=== PATIENT | male | born 1965 | race Caucasian/White ===

== ENCOUNTER 2018-07-08 12:06 | Emergency (ER) | payer OTHER ==
[2018-07-08] MEDS ORDERED: Norflex 60 MG/2 ML IM ONE (13:34)
[2018-07-08] MEDS ORDERED: TORAdol 30 mg Injection IM ONE (13:34)
[2018-07-08] MEDS ORDERED: Norflex 60 MG/2 ML ONE (13:41)
[2018-07-08] MEDS ORDERED: TORAdol 30 mg Injection ONE (13:41)
--- NOTE | 2018-07-08 13:46 | ERPHSYRPT ---
- History of Present Illness Time Seen by Provider: 07/08/18 13:20 Source: patient Exam Limitations: no limitations Patient Subjective Stated Complaint: Pt states "I have rods and stuff in my back and I have allot of back pain all the time, but this is different. The pain is in my lower back and goes down into my butt on both sides." Triage Nursing Assessment: PT alert and oriented X 3, skin pwd Pt ambulates with an upright slow steady gait, able to speak in clear full sentences. PT in no apparent respiratory distress. Physician History: C/o low back pain, radiates to his legs x 2 days, denies recent injury. He has been treated with chronic low back pain for years, he underwent surgeries, last one 3 years ago. He denies fever, chills, nausea, vomiting, abdominal pain, fever, chills other complaints, he is past alcoholic, denies current abuse, no iv drug use recent or past. Timing/Duration: day(s) (2) Method of Injury: other (denies) Quality: radiating, sharp Back Pain Location: lumbar spine, paraspinous muscles Back Pain Radiation: buttocks, upper legs Severity of Pain-Max: severe Severity of Pain-Current: severe Modifying Factors: Improves With: movement Associated Symptoms: denies symptoms Previous symptoms: same symptoms as today Allergies/Adverse Reactions: acetaminophen Adverse Reaction (Severe, Verified 07/08/18 12:40) liver disease Hx Tetanus, Diphtheria Vaccination/Date Given: Yes Hx Influenza Vaccination/Date Given: Yes Hx Pneumococcal Vaccination/Date Given: No Immunizations Up to Date: Yes - Review of Systems Constitutional: No Symptoms Eyes: No Symptoms Ears, Nose, & Throat: No Symptoms Respiratory: No Symptoms Cardiac: No Symptoms Abdominal/Gastrointestinal: No Symptoms Genitourinary Symptoms: No Symptoms Musculoskeletal: Back Pain Skin: No Symptoms Neurological: No Symptoms, No Paralysis, No Parasthesia All Other Systems: Reviewed and Negative - Past Medical History Pertinent Past Medical History: Yes Neurological History: No Pertinent History ENT History: No Pertinent History Cardiac History: Hypertension Respiratory History: No Pertinent History Endocrine Medical History: Liver Disease Musculoskeletal History: Degenerative Disk Disease GI Medical History: No Pertinent History History: No Pertinent History Psycho-Social History: Anxiety, Depression Male Reproductive Disorders: No Pertinent History - Past Surgical History Past Surgical History: Yes Other Surgical History: spinal fusion. right shoulder. nose. appi. julia - Social History Smoking Status: Never smoker Exposure to second hand smoke: Yes Drug Use: none Patient Lives Alone: No - Nursing Vital Signs Nursing Vital Signs: Initial Vital Signs Temperature 98.6 F 07/08/18 12:32 Pulse Rate 66 07/08/18 12:32 Respiratory Rate 18 07/08/18 12:32 Blood Pressure 140/80 07/08/18 12:32 O2 Sat by Pulse Oximetry 98 07/08/18 12:32 Pain Scale Pain Intensity [Lower Back] 6 Pain Intensity 4 - Physical Exam General Appearance: no apparent distress Eye Exam: eyes nml inspection Ears, Nose, Throat Exam: normal ENT inspection Neck Exam: normal inspection, non-tender Respiratory Exam: normal breath sounds, lungs clear Cardiovascular Exam: regular rate/rhythm, normal heart sounds, normal peripheral pulses Gastrointestinal Exam: soft, normal bowel sounds, No tenderness, No distention, No mass, No guarding, No rebound Back Exam: normal inspection, decreased range of motion, No CVA tenderness, No vertebral tenderness, No rash, No muscle spasm, No point tenderness Extremity Exam: normal inspection Peripheral Pulses: dorsalis-pedis (R): 3+, dorsalis-pedis (L): 3+ Neurologic Exam: alert, oriented x 3, cooperative, normal mood/affect, other ( normal reflexes), No motor deficits, No motor weakness Skin Exam: normal color, warm, dry, No rash Lymphatic Exam: No adenopathy SpO2 Interpretation: normal SpO2: 96 O2 Delivery: Room Air - Course Nursing assessment & vital signs reviewed: Yes - CT Exams Lumbar Spine CT Interpretation: Tele-radiologist Report, Other (chronic changes, DJD, no large disc herniation or spinal stenosis) Ordered Tests: Active Orders 24 hr Category Date Time Status LUMBAR SPINE W/O [CT] Stat Exams 07/08/18 13:33 Completed Urinalysis with Microscopy Stat Lab 07/08/18 Uncollected Medication Summary Discontinued Medications Generic Name Dose Route Start Last Admin Trade Name Freq PRN Reason Stop Dose Admin Ketorolac Tromethamine 60 mg 07/08/18 13:34 07/08/18 13:51 Toradol 30 Mg Injection IM 07/08/18 13:35 60 mg STAT ONE Administration Ketorolac Tromethamine Confirm 07/08/18 13:41 Toradol 30 Mg Injection Administered 07/08/18 13:42 Dose 60 mg .ROUTE .STK-MED ONE Orphenadrine Citrate 60 mg 07/08/18 13:34 07/08/18 13:50 Norflex 60 Mg/2 Ml IM 07/08/18 13:35 60 mg STAT ONE Administration Orphenadrine Citrate Confirm 07/08/18 13:41 Norflex 60 Mg/2 Ml Administered 07/08/18 13:42 Dose 60 mg .ROUTE .STK-MED ONE - Progress Progress: improved Progress Note: 07/08/18 15:01 Pt states, he improved after Toradol and Norflex, able to urinate, afebrile, and stable. We discussed his findings, and will discharge to rest x 2-3 days, and follow up with his physician in 1 week. Counseled pt/family regarding: diagnosis, need for follow-up, rad results - Departure Time of Disposition: 15:03 Departure Disposition: Home Clinical Impression: Back pain Qualifiers: Back pain location: low back pain Chronicity: unspecified Back pain laterality : bilateral Sciatica presence: with sciatica Sciatica laterality: sciatica laterality unspecified Qualified Code(s): M54.40 - Lumbago with sciatica, unspecified side Condition: Stable Critical Care Time: No Referrals: GUILHERME AMARAL PA [Primary Care Provider] - Instructions: Low Back Pain (DC), Sciatica (DC) Additional Instructions: Rest x 2-3 days, apply moist heat to back, and follow up with your physician in 1 week, return if severe pain, sudden leg weakness, numbness, loss of bladder or bowel control! Prescriptions: Cyclobenzaprine HCl 10 mg [Cyclobenzaprine 10 MG] 10 mg PO TID #30 tablet Methylprednisolone Packet [Medrol Dosepack] 4 mg PO UD #1 packet Tramadol HCl 50 mg [Ultram 50 mg] 50 mg PO Q6H PRN #10 tablet PRN Reason: Pain
--- NOTE | 2018-07-08 14:07 | XRAY ---
Indication: Severe low back pain for a few months. Multiple contiguous axial images obtained through the lumbar spine. Sagittal and coronal reformatted images obtained. Comparison: None Intact bilateral L4-S1 pedicle screws and intervertebral spacers produces beam artifact limiting these levels. Same levels demonstrates laminectomy. Axial images through the T12-L3 levels negative for large disc herniation or spinal canal stenosis. Facets are symmetric. At the L3-L4 level, there is minimal annular disc bulge minimally effacing the thecal sac and producing bilateral foraminal narrowing. Also minimal degenerative vacuum disc phenomena. No obvious large disc herniation or canal stenosis. At the L4-L5-S1 levels, minimal broad-based disc osteophyte complex effaces the thecal sac and produces bilateral foraminal narrowing. No obvious large disc herniation or canal stenosis. Sagittal and coronal reformatted images demonstrates normal lumbar alignment/lordosis. L4-S1 disc space loss. No acute compression fracture or subluxation. Visualized noncontrasted soft tissues unremarkable. Impression: 1. L4-S1 fusion surgery and laminectomy with spinal hardware producing beam artifact limiting these levels. 2. Multilevel degenerative disc disease as detailed. 3. Remaining CT lumbar spine negative for large disc herniation or spinal canal stenosis. CT DI 124.18
[2018-07-08 15:11] VITALS: BP 136/82; PULSE 60; O2SAT 98
== END 2018-07-08 15:22 | disposition home or self-care (01) ==
LOC: ED 12:06
DX: M54.40 Lumbago with sciatica, unspecified side (principal); I10 Essential (primary) hypertension; F41.8 Other specified anxiety disorders
CPT/HCPCS: 72131; 96372; 99284; J1885; J2360